=== PATIENT | female | born 1935 | race Caucasian/White ===

== ENCOUNTER 2019-07-23 12:06 | Day surgery (SDC) | payer MEDICARE, OTHER ==
[~2019-07-23] VITALS: Ht 149.9 cm; Wt 67.1 kg
[~2019-07-23 12:06] MED LIST: AMLO10 PO; AMLO5 PO; ASPI81EC PO; CEFD300 PO; CHOL10002 PO; FERR325 PO; LEVSOD75 PO; LISI20 PO; MULTI VITAMIN1 EACH PO; Prednisone50 MG PO
--- NOTE | 2019-07-23 14:36 | NUR ---
07/23/19 1436 Patricia Levin DURING THE LAST PART OF THE UPPER ENDOSCOPY THE PT WENT BRADYCARDIC IN THE TEENS, SUCKED AIR OUT OF HER DIAPHRAM, WEAK PULSE QUICKLY SPED UP TO 60'S-80'S BECOMING STRONGER HER RATE CONTINUED UP. PT ASYMPTOMATIC UPON AWAKENING, HR 65.
== END 2019-07-23 15:13 | disposition home or self-care (01) ==
LOC: ORSCSDS 12:06
PROVIDERS: Surgery
PROC: 0DB68ZX Excision of Stomach, Via Natural or Artificial Opening Endoscopic, Diagnostic (ICD-10-PCS; principal; 2019-07-23 14:00)
PROC: 0DB48ZX Excision of Esophagogastric Junction, Via Natural or Artificial Opening Endoscopic, Diagnostic (ICD-10-PCS; principal; 2019-07-23 14:00)
DX: K44.9 Diaphragmatic hernia without obstruction or gangrene (principal); R10.13 Epigastric pain; E03.9 Hypothyroidism, unspecified; I10 Essential (primary) hypertension; E78.5 Hyperlipidemia, unspecified; Z79.82 Long term (current) use of aspirin; Z79.899 Other long term (current) drug therapy
CPT/HCPCS: 88305; 88342; J2704; J7120

== ENCOUNTER → 2019-10-14 | Outpatient (CLI) | payer MEDICARE, OTHER ==
[~2019-10-14] MED LIST changes: +HYDR1TAB94 PO; +METO10 PO; +ONDA4ODT MM
[2019-10-14 18:05] LABS: Source, Urine Clean Catch
[2019-10-14 19:13] LABS: Bilirubin, Urine Neg (Neg); Blood, Urine Neg (Neg); Glucose Qualitative, Urine Neg (Neg); Ketones, Urine Neg (Neg); Leukocyte Esterase, Urine 1+ (Neg); Nitrite, Urine Neg (Neg); Protein, Urine Neg (Neg); Specific Gravity, Urine 1.015 (1.003-1.022); Urobilinogen, Urine NORM (Normal)
[2019-10-14 19:23] LABS: Appearance, Urine Clear (Clear); Color, Urine Yellow (P-Yellow)
[2019-10-14 19:24] LABS: Bacteria Few /hpf; Red Blood Cells, Urine 0-2 /hpf (0-2); Squamous Epithelial Cells Few /hpf (Few)
== END | disposition home or self-care (01) ==
LOC: LAB 18:01 → LAB SHORT 18:01
PROVIDERS: Nurse Practitioner Family
DX: I10 Essential (primary) hypertension (principal)
CPT/HCPCS: 81001; 87086

== ENCOUNTER 2020-10-23 14:14 | Emergency (ER) | payer MEDICARE, OTHER ==
[~2020-10-23] VITALS: Ht 149.9 cm; Wt 64.9 kg
[~2020-10-23 14:14] MED LIST changes: -ASPI81EC PO; +AZIT250 PO; +Acetaminophen650 M1 PO; +Aspir 8181 MG PO; -CHOL10002 PO; +DOCU100 PO; +EUTHYROX50 MCG PO; +FERSU300 PO; +HYDCHL25 PO; -LEVSOD75 PO; -LISI20 PO; +METO25 PO; +ONDA4 PO; +VITAMIN D31000 UNI1 PO; +XARELTO20 MG PO; +ZESTRIL40 M1 PO
== END 2020-10-23 14:45 | disposition home or self-care (01) ==
LOC: ER 14:14
DX: U07.1 COVID-19 (principal); I10 Essential (primary) hypertension; E03.9 Hypothyroidism, unspecified; Z88.7 Allergy status to serum and vaccine; Z88.5 Allergy status to narcotic agent; Z79.899 Other long term (current) drug therapy
CPT/HCPCS: 99282

== ENCOUNTER 2020-11-26 09:47 | Inpatient (IN) | payer MEDICARE, OTHER ==
[~2020-11-26] VITALS: Ht 149.9 cm; Wt 61.5 kg
[~2020-11-26 09:47] MED LIST changes: -METO25 PO; +METO25ER PO; +XARELTO15 M1 PO; -XARELTO20 MG PO
[2020-11-26 10:29] LABS: BASOPHILS ABSOLUTE AUTO 0.07 K/mm3 (0.00-0.23); BASOPHILS PERCENT AUTO 1 % (0-2); EOSINOPHILS ABSOLUTE AUTO 0.01 K/mm3 (0.00-0.68); EOSINOPHILS PERCENT AUTO 0 % (0-6); Hematocrit 35.9 % (33.0-51.0); Hemoglobin 11.5 g/dL (11.5-16.0); IMMATURE GRAN ABSOLUTE AUTO 0.55 K/mm3 (0.00-0.10); IMMATURE GRAN PERCENT AUTO 4 % (0-1); LYMPHOCYTES ABSOLUTE AUTO 2.17 K/mm3 (0.84-5.20); LYMPHOCYTES PERCENT AUTO 16 % (21-46); MONOCYTES ABSOLUTE AUTO 1.41 K/mm3 (0.16-1.47); MONOCYTES PERCENT AUTO 10 % (4-13); Mean Corpuscular HGB 27.8 pg (26.0-34.0); Mean Corpuscular Volume 87 fL (80-100); Mean Platelet Volume 10.1 fL (9.1-12.4); NEUTROPHILS ABSOLUTE AUTO 9.37 K/mm3 (1.96-9.15); NEUTROPHILS PERCENT AUTO 69 % (41-73); Platelet Count 697 K/mm3 (150-400); RDW Coefficient Variation 15.9 % (11.7-14.2); Red Blood Cell Count 4.14 M/mm3 (3.80-5.20); White Blood Cell Count 13.58 K/mm3 (4.00-11.30)
[2020-11-26 10:49] LABS: Alanine Aminotransfer (ALT/SGP 98 U/L (12-78); Albumin/Globulin Ratio 0.4 (0.8-1.8); Alk Phos 100 U/L (50-136); Anion Gap 6 mmol/L (6-16); Aspartate Aminotrans (AST/SGOT 53 U/L (12-37); Bilirubin, Total 0.5 mg/dL (0.1-1.0); Blood Urea Nitrogen 21 mg/dL (8-24); Bun/Creatinine Ratio 27.5 (12.0-20.0); CO2, Blood 27 mmol/L (21-32); Calcium, Blood 8.9 mg/dL (8.5-10.1); Chloride, Blood 103 mmol/L (98-108); Creatinine, Blood 0.76 mg/dL (0.40-1.00); Globulin, Blood 4.8 g/dL (2.2-4.0); Glomerular Filtration Rate >60 (60-); Glucose, Blood 98 mg/dL (70-99); Potassium, Blood 3.7 mmol/L (3.5-5.5); Sodium, Blood 136 mmol/L (136-145); Total Protein, Blood 6.8 g/dL (6.4-8.2); Troponin I <0.015 ng/mL (0.000-0.040)
[2020-11-26] MEDS ORDERED: METOPROLOL SUCC25 MG PO (12:20)
[2020-11-26] MEDS ORDERED: HYDCHL25 PO (12:22)
[2020-11-26] MEDS ORDERED: ASCO500 PO (12:54)
--- NOTE | 2020-11-26 17:20 | NUR ---
SUMMARY PT ADMITTED FROM THE ER FOR PLEURAL EFFUSION, DR BOO DID A BEDSIDE THORACENTESIS, PT RONAL WELL, OVER 1 LITER OF FLUID REMOVED AND SENT TO THE LAB, PT ON 2L NC, BASELINE IS ROOM AIR, SON AND PT'S ORE BUYER IS AT THE BEDSIDE, PT REPORTS BREATHING EASIER AFTER PROCEDURE, AWAITING CHEST X RAY, VSS, WILL CONT TO MONITOR
[2020-11-26 17:25] LABS: Automated BF RBC Count 0.005 M/mm3 (0-0); Automated BF WBC Count 1.104 K/mm3 (0-999); Body Fluid WBC Count 1104 /mm3 (0-999); RBC Count, Body Fluid 5000 /mm3 (0-0)
[2020-11-26 17:31] LABS: Lactate Dehydrogenase, Body Fl 128 U/L; Protein, Body Fluid 3.7 g/dL
[2020-11-26 17:32] LABS: Glucose, Body Fluid 86 mg/dL
[2020-11-26 18:14] LABS: Appearance, Body Fluid Hazy (Clear); Color, Body Fluid Yellow (None-Yellow); Total Cell Count, Body Fluid 100
[2020-11-27 04:45] LABS: BASOPHILS ABSOLUTE AUTO 0.06 K/mm3 (0.00-0.23); BASOPHILS PERCENT AUTO 1 % (0-2); EOSINOPHILS PERCENT AUTO 0 % (0-6); Hematocrit 35.3 % (33.0-51.0); Hemoglobin 11.5 g/dL (11.5-16.0); IMMATURE GRAN ABSOLUTE AUTO 0.41 K/mm3 (0.00-0.10); IMMATURE GRAN PERCENT AUTO 3 % (0-1); LYMPHOCYTES ABSOLUTE AUTO 1.51 K/mm3 (0.84-5.20); LYMPHOCYTES PERCENT AUTO 12 % (21-46); MONOCYTES ABSOLUTE AUTO 0.24 K/mm3 (0.16-1.47); MONOCYTES PERCENT AUTO 2 % (4-13); Mean Corpuscular HGB 27.9 pg (26.0-34.0); Mean Corpuscular HGB Conc 32.6 g/dL (31.5-36.5); Mean Corpuscular Volume 86 fL (80-100); Mean Platelet Volume 10.3 fL (9.1-12.4); NEUTROPHILS PERCENT AUTO 83 % (41-73); Platelet Count 620 K/mm3 (150-400); RDW Coefficient Variation 15.9 % (11.7-14.2); RDW Standard Deviation 49.5 fL (35.1-46.3); Red Blood Cell Count 4.12 M/mm3 (3.80-5.20); White Blood Cell Count 13.12 K/mm3 (4.00-11.30)
[2020-11-27 05:04] LABS: Anion Gap 8 mmol/L (6-16); Blood Urea Nitrogen 23 mg/dL (8-24); Bun/Creatinine Ratio 28.6 (12.0-20.0); CO2, Blood 27 mmol/L (21-32); Calcium, Blood 8.5 mg/dL (8.5-10.1); Chloride, Blood 101 mmol/L (98-108); Glomerular Filtration Rate >60 (60-); Glucose, Blood 116 mg/dL (70-99); Magnesium, Blood 2.1 mg/dL (1.6-2.4); Potassium, Blood 3.9 mmol/L (3.5-5.5); Sodium, Blood 136 mmol/L (136-145)
--- NOTE | 2020-11-27 05:15 | NUR ---
SHIFT SUMMARY PT IS AN 85 Y/O FEMALE, ADMITTED FOR PLEURAL EFFUSION. SHE IS A&O X 3, 1PA TO [facility] [place] TELE SHOWED AFIB IN THE 130S THAT CONVERTED TO NSR IN THE 90S @ 2007. PT CURRENTLY ON 2L VIA NC, SATTING > 90%. ALL OTHER VITALS STABLE. PT STATES SHE IS "FEELING MUCH BETTER", THOUGH DOES REPORT SORENESS IN THE AREA OF HER THORACENTESIS. NO OTHER C/O ACUTE PAIN, NAUSEA OR SOB. NO OTHER ACUTE CHANGES IN PT CONDITION NOTED DURING THE NIGHT. WILL CONTINUE TO MONITOR AND TREAT PER EMAR UNTIL HAND OFF TO DAY SHIFT RN.
--- NOTE | 2020-11-27 13:37 | NUR ---
Pt and daughter request handouts with meal ideas. Provided a variety of handouts that share suggestions for planning meals and eating more fruits/vegetables. Pt seemed eager to try the suggestions.
--- NOTE | 2020-11-27 17:04 | NUR ---
SUMMARY PT SITTING UP IN BED WATCHING TV, PT HAS BEEN PLEASANT AND COOPERATIVE T/O THE DAY, PT WAS TAKEN OFF OXYGEN FIRST THING THIS MORNING, PT RONAL WELL, CAREGIVER WAS IN TO SEE THE PT TODAY, PT'S SON WAS ALSO IN TO SEE THE PT, THERAPY WORKED WITH THE PT AND MADE RECOMMENDATIONS FOR HOME WITH HOME HEALTH, PT HAS BEEN UP WITH 1 ASSIST, GAVE PT A FLUTTER VALVE AND AN INCENTIVE SPIROMETER, PT DEMONSTRATED HOW TO USE THEM BOTH, VSS, WILL CONT TO MONITOR
--- NOTE | 2020-11-28 04:54 | NUR ---
SHIFT SUMMARY PT IS A&OX4. ABLE TO MAKE NEEDS KNOWN. PT HAS DIMINISHED LUNG SOUNDS ON THE LEFT LOBE, CLEAR ON THE RIGHT. PT DENIES PAIN. ADLS PROVIDED. SAFETY MEASURES IN PLACE. WILL CONTINUE TO MONITOR.
[2020-11-28] MEDS ORDERED: FURO40 PO (09:24)
--- NOTE | 2020-11-28 16:22 | NUR ---
SHIFT SUMMARY PATIENT DENIES PAIN, NAUSEA, AND SHORTNESS OF BREATH AT REST. PATIENT REPORTS SOME SOB WITH ACTIVITY. PATIENT SBA TO THE BATHROOM. PATIENT EATING AND DRINKING WELL. PATIENT SUSTAINED A HEART RATE OF 160-170, PER DIE CAST TECHNICIAN ANTONELLA THIS AFTERNOON. LOPRESSOR GIVEN PER EMAR. HEART RATE CAME DOWN TO 120-130. IT WOULD OCCASIONALLY JUMP TO 140-150, BUT COME BACK DOWN, PER DIE CAST TECHNICIAN. DR. BOO CALLED. NEW ORDERS PLACED. AT 1600, PATIENT CONVERTED BACK TO SINUS RYTHYM, PER DIE CAST TECHNICIAN. PATIENT DENIED ANY SYMPTOMS. DISCHARGE HELD TILL TOMORROW DUE TO FAMILY SUPPORT BEING OUT OF TOWN. PATIENT IS PLEASANT AND COOPERATIVE WITH CARE.
[2020-11-29 04:52] LABS: BASOPHILS ABSOLUTE AUTO 0.03 K/mm3 (0.00-0.23); BASOPHILS PERCENT AUTO 0 % (0-2); EOSINOPHILS PERCENT AUTO 0 % (0-6); Hematocrit 33.4 % (33.0-51.0); Hemoglobin 10.9 g/dL (11.5-16.0); IMMATURE GRAN PERCENT AUTO 2 % (0-1); LYMPHOCYTES ABSOLUTE AUTO 2.39 K/mm3 (0.84-5.20); LYMPHOCYTES PERCENT AUTO 12 % (21-46); MONOCYTES ABSOLUTE AUTO 1.49 K/mm3 (0.16-1.47); MONOCYTES PERCENT AUTO 8 % (4-13); Mean Corpuscular HGB 27.5 pg (26.0-34.0); Mean Corpuscular HGB Conc 32.6 g/dL (31.5-36.5); Mean Corpuscular Volume 84 fL (80-100); Mean Platelet Volume 10.6 fL (9.1-12.4); NEUTROPHILS ABSOLUTE AUTO 15.34 K/mm3 (1.96-9.15); NEUTROPHILS PERCENT AUTO 78 % (41-73); NRBC ABSOLUTE 0.02 K/mm3 (0.00-0.02); NRBC Auto 0.1 /100 WBC (0.0-0.2); Platelet Count 546 K/mm3 (150-400); RDW Coefficient Variation 15.5 % (11.7-14.2); RDW Standard Deviation 47.7 fL (35.1-46.3); Red Blood Cell Count 3.96 M/mm3 (3.80-5.20); White Blood Cell Count 19.65 K/mm3 (4.00-11.30)
[2020-11-29 05:23] LABS: Bun/Creatinine Ratio 38.2 (12.0-20.0); Calcium, Blood 8.4 mg/dL (8.5-10.1); Creatinine, Blood 1.02 mg/dL (0.40-1.00); Potassium, Blood 3.2 mmol/L (3.5-5.5)
--- NOTE | 2020-11-29 05:23 | NUR ---
SHIFT SUMMARY PT A&OX3. NO ACUTE CHANGES ON THIS SHIFT. RESP EVEN AND UNLABORED. ADLS PROVIDED. SAFETY MEASURES IN PLACE. WILL CONTINUE TO MONITOR.
--- NOTE | 2020-11-29 16:09 | NUR ---
SHIFT SUMMARY PATIENT DENIES PAIN, NAUSEA, AND SHORTNESS OF BREATH. PATIENT ON ROOM AIR AND SATURATING ABOVE 93%. PATIENT IS A SBA WITH FWW TO THE BATHROOM. PATIENT IS EATING AND DRINKING WELL. PATIENT WAS TAKEN TO CHEST XR THIS AFTERNOON. PATIENT DAUGHTER VISITED IN AFTERNOON. PENDING DISCHARGE TOMORROW. PATIENT IS PLEASANT AND COOPERATIVE WITH CARE.
[2020-11-30 04:43] LABS: BASOPHILS ABSOLUTE AUTO 0.06 K/mm3 (0.00-0.23); BASOPHILS PERCENT AUTO 1 % (0-2); EOSINOPHILS PERCENT AUTO 1 % (0-6); Hematocrit 34.3 % (33.0-51.0); IMMATURE GRAN PERCENT AUTO 5 % (0-1); LYMPHOCYTES ABSOLUTE AUTO 2.83 K/mm3 (0.84-5.20); LYMPHOCYTES PERCENT AUTO 25 % (21-46); MONOCYTES ABSOLUTE AUTO 1.46 K/mm3 (0.16-1.47); MONOCYTES PERCENT AUTO 13 % (4-13); Mean Corpuscular HGB 27.4 pg (26.0-34.0); Mean Corpuscular HGB Conc 32.1 g/dL (31.5-36.5); Mean Corpuscular Volume 86 fL (80-100); Mean Platelet Volume 10.4 fL (9.1-12.4); NEUTROPHILS PERCENT AUTO 56 % (41-73); Platelet Count 463 K/mm3 (150-400); RDW Coefficient Variation 15.5 % (11.7-14.2); RDW Standard Deviation 48.2 fL (35.1-46.3); Red Blood Cell Count 4.01 M/mm3 (3.80-5.20); White Blood Cell Count 11.45 K/mm3 (4.00-11.30)
[2020-11-30 05:02] LABS: Bun/Creatinine Ratio 31.1 (12.0-20.0); Calcium, Blood 8.3 mg/dL (8.5-10.1); Creatinine, Blood 1.03 mg/dL (0.40-1.00); Magnesium, Blood 2.2 mg/dL (1.6-2.4); Potassium, Blood 3.3 mmol/L (3.5-5.5)
--- NOTE | 2020-11-30 05:47 | NUR ---
PATIENT IS ALERT AND ORIENTED TO SELF. PATIENT IS PLEASANT AND COOPERATIVE. PATIENT DENIES PAIN OR ANY DISCOMFORT. PATIENT SLEPT MOST OF THE NIGHT NO PATIENT DENIE SOB. NO ACUTE EVENT OR DISTRESS NOTED. WILL CONTINUE TO MONITOR.
--- NOTE | 2020-11-30 12:19 | NUR ---
Per chart review this am with Dr. Horn, pt. likely to discharge today. I have reached out to patient's caregiver Anatoly and requested a call back regarding hospital bed. I will need to know if ordering through [facility] with delivery at roughly 2:30 pm would work for the family. I will also order shower chair. Also contacted patient's son and he is trying to reach Anatoly as well. Requested that they call back soon. All DME will be billed to insurance.
--- NOTE | 2020-11-30 13:37 | NUR ---
Spoke with patients caregiver and confirmed [facility] was appropriate for hospital bed and shower chair order at 12:30 pm today. Orders sent over and confirmed with oncology transplant network manager Carlos that [facility] will deliver prior to 3 pm today. Contacted Rafaela with [facility] per family request. Rafaela will reach out to family to discuss services.Confirmed that family will provide transportation. Per caregiver, pt. has the support she needs at home with the addition of HH. They have my contact number and the number for the clinic if any further needs post discharge. Pt. scheduled for hospital F/U on 12/03/20 at 12pm.
--- NOTE | 2020-11-30 16:26 | NUR ---
discharge summary The patient was A/OX4 to person, place, time and event. The patient was pleasent and cooperative with care. The patient is on RA and is a 1 prsn assist to the bathroom. The patient stated that she feels better than when she was admited and can breath easer. She has been using the insentive spirometer and acapella device. The patients daughter was in the room with her and she was given discharge instructions verbally and written. Her medications were faxed to her pharm. The patient and the daughter stated that understood the discharge instructions and denied having any questions.
== END 2020-11-30 14:21 | disposition home health service (06) | DRG 186 ==
LOC: ER 09:47 → MEDS 13:12 → ENPENDDIS 11-30 12:45 → MEDS 11-30 14:21
PROVIDERS: Physician Assistant; ADMIT Internal Medicine
PROC: 0W9B3ZZ Drainage of Left Pleural Cavity, Percutaneous Approach (ICD-10-PCS; principal; 2020-11-28)
DX: J90 Pleural effusion, not elsewhere classified (principal); J96.01 Acute respiratory failure with hypoxia; I13.0 Hypertensive heart and chronic kidney disease with heart failure and stage 1 through stage 4 chronic kidney disease, or unspecified chronic kidney disease; I50.30 Unspecified diastolic (congestive) heart failure; U09.9 Post COVID-19 condition, unspecified; D72.829 Elevated white blood cell count, unspecified; N18.30 Chronic kidney disease, stage 3 unspecified; I48.91 Unspecified atrial fibrillation; E03.9 Hypothyroidism, unspecified; Z88.7 Allergy status to serum and vaccine; Z88.5 Allergy status to narcotic agent; Z79.01 Long term (current) use of anticoagulants; Z79.899 Other long term (current) drug therapy; Z98.51 Tubal ligation status; Z90.49 Acquired absence of other specified parts of digestive tract; Z90.710 Acquired absence of both cervix and uterus; Z90.89 Acquired absence of other organs; Z98.890 Other specified postprocedural states; Z87.891 Personal history of nicotine dependence
CPT/HCPCS: 36415; 71045; 71046; 76604; 80048; 80053; 82945; 83615; 83735; 83880; 84145; 84157; 84484; 85025; 87070; 87205; 88108; 88305; 89051; 93005; 93010; 93308; 93321; 94667; 97110; 97161; 97530; 99285-25; A9270; J1650; J1940; J2920

== ENCOUNTER 2021-06-17 10:40 | Day surgery (SDC) | payer MEDICARE, OTHER ==
[~2021-06-17] VITALS: Ht 149.9 cm; Wt 64.9 kg
[~2021-06-17 10:40] MED LIST changes: +ASCO500 PO; +FURO40 PO; +METOPROLOL SUCC25 MG PO
[2021-06-17] MEDS ORDERED: FLUTICASONE-SA1 EAC1 INH (10:51)
[2021-06-17] MEDS ORDERED: POTA10T PO (10:51)
[2021-06-17] MEDS ORDERED: TORSE20 PO (10:51)
--- NOTE | 2021-06-17 10:59 | NUR ---
06/17/21 1059 Asha Barragan CALL LIGHT WITHIN REACH. TETRACAINE AT 1053 AND PLEDGETT AT 1054 IN LEFT EYE
== END 2021-06-17 12:18 | disposition home or self-care (01) ==
LOC: ORSCSDS 10:40
PROVIDERS: Ophthalmology
PROC: 08RK3JZ Replacement of Left Lens with Synthetic Substitute, Percutaneous Approach (ICD-10-PCS; principal; 2021-06-17 12:00)
DX: H25.13 Age-related nuclear cataract, bilateral (principal); I48.91 Unspecified atrial fibrillation; I10 Essential (primary) hypertension; E03.9 Hypothyroidism, unspecified; Z79.01 Long term (current) use of anticoagulants; Z79.899 Other long term (current) drug therapy
CPT/HCPCS: J2001; J2250; J3010; J3301; J7040; V2632

== ENCOUNTER 2021-07-13 09:32 | Day surgery (SDC) | payer MEDICARE, OTHER ==
[~2021-07-13] VITALS: Ht 149.9 cm; Wt 65.0 kg
[~2021-07-13 09:32] MED LIST changes: +FLUTICASONE-SA1 EAC1 INH; +POTA10T PO; +TORSE20 PO
== END 2021-07-13 12:20 | disposition home or self-care (01) ==
LOC: ORSCSDS 09:32
PROVIDERS: Ophthalmology
PROC: 08RJ3JZ Replacement of Right Lens with Synthetic Substitute, Percutaneous Approach (ICD-10-PCS; principal; 2021-07-13 11:00)
DX: H25.11 Age-related nuclear cataract, right eye (principal); I10 Essential (primary) hypertension; I48.91 Unspecified atrial fibrillation; Z79.01 Long term (current) use of anticoagulants; Z79.899 Other long term (current) drug therapy
CPT/HCPCS: J2001; J2250; J3010; J3301; J7040; V2632

== ENCOUNTER → 2022-03-08 | Outpatient (CLI) | payer MEDICARE, OTHER | LOC: PLD 13:51 → LAB 13:51 → LAB SHORT 13:51 | DX: C44.1121 Basal cell carcinoma of skin of right upper eyelid, including canthus (principal) | CPT/HCPCS: 88305 ==

== ENCOUNTER 2022-10-05 03:09 | Emergency (ER) | payer MEDICARE, OTHER ==
[~2022-10-05] VITALS: Ht 149.9 cm; Wt 68.0 kg
[2022-10-05 04:00] VITALS: BP 150/80
== END 2022-10-05 05:02 | disposition home or self-care (01) ==
LOC: ER 03:09
DX: H59.311 Postprocedural hemorrhage of right eye and adnexa following an ophthalmic procedure (principal); S00.11XA Contusion of right eyelid and periocular area, initial encounter; I12.9 Hypertensive chronic kidney disease with stage 1 through stage 4 chronic kidney disease, or unspecified chronic kidney disease; N18.30 Chronic kidney disease, stage 3 unspecified; E03.9 Hypothyroidism, unspecified; I48.91 Unspecified atrial fibrillation; Z79.01 Long term (current) use of anticoagulants; Z79.899 Other long term (current) drug therapy; Z87.891 Personal history of nicotine dependence; X58.XXXA Exposure to other specified factors, initial encounter
CPT/HCPCS: 99283

== ENCOUNTER 2024-04-03 12:44 | Emergency (ER) | payer MEDICARE, OTHER ==
[~2024-04-03] VITALS: Ht 144.8 cm; Wt 67.6 kg
[2024-04-03] MEDS ORDERED: METO25ER PO (13:22)
[2024-04-03] MEDS ORDERED: SYNTHROID50 MC1 PO (13:23)
[2024-04-03 13:35] LABS: BASOPHILS ABSOLUTE AUTO 0.09 K/mm3 (0.00-0.23); BASOPHILS PERCENT AUTO 1 % (0-2); EOSINOPHILS PERCENT AUTO 2 % (0-6); Hematocrit 38.8 % (33.0-51.0); Hemoglobin 12.9 g/dL (11.5-16.0); IMMATURE GRAN ABSOLUTE AUTO 0.03 K/mm3 (0.00-0.10); IMMATURE GRAN PERCENT AUTO 0 % (0-1); LYMPHOCYTES PERCENT AUTO 33 % (21-46); MONOCYTES ABSOLUTE AUTO 0.92 K/mm3 (0.16-1.47); MONOCYTES PERCENT AUTO 11 % (4-13); Mean Corpuscular HGB Conc 33.2 g/dL (31.5-36.5); Mean Corpuscular Volume 87 fL (80-100); NEUTROPHILS ABSOLUTE AUTO 4.49 K/mm3 (1.96-9.15); NEUTROPHILS PERCENT AUTO 53 % (41-73); Platelet Count 227 K/mm3 (150-400); RDW Coefficient Variation 13.4 % (11.7-14.2); RDW Standard Deviation 42.9 fL (35.1-46.3); Red Blood Cell Count 4.45 M/mm3 (3.80-5.20); White Blood Cell Count 8.53 K/mm3 (4.00-11.30)
[2024-04-03 13:57] LABS: Albumin, Blood 3.5 g/dL (3.4-5.0); Albumin/Globulin Ratio 0.9 (0.8-1.8); Bilirubin, Total 0.5 mg/dL (0.1-1.0); Bun/Creatinine Ratio 22.9 (12.0-20.0); Calcium, Blood 9.2 mg/dL (8.5-10.1); Creatinine, Blood 1.05 mg/dL (0.40-1.00); Globulin, Blood 3.8 g/dL (2.2-4.0); Potassium, Blood 3.7 mmol/L (3.5-5.5); Total Protein, Blood 7.3 g/dL (6.4-8.2)
[2024-04-03] MEDS ORDERED: Fluorescein Sod 1MG Opth Strips LEFTEYE ONE (14:35)
[2024-04-03 15:00] VITALS: BP 152/81
== END 2024-04-03 15:37 | disposition home or self-care (01) ==
LOC: ER 12:44
PROVIDERS: Student in an Organized Health Care Education/Training Program
DX: S00.03XA Contusion of scalp, initial encounter (principal); I10 Essential (primary) hypertension; E78.5 Hyperlipidemia, unspecified; I48.91 Unspecified atrial fibrillation; Z87.891 Personal history of nicotine dependence; W18.30XA Fall on same level, unspecified, initial encounter
CPT/HCPCS: 70450; 72125; 80053; 85025; 93005; 93010; 99284-25; A9270

== ENCOUNTER 2024-06-23 10:34 | Emergency (ER) | payer MEDICARE, OTHER ==
[~2024-06-23] VITALS: Ht 149.9 cm; Wt 68.0 kg
[~2024-06-23 10:34] MED LIST changes: +SYNTHROID50 MC1 PO
[2024-06-23 11:19] LABS: CORONAVIRUS COVID-19 AG Negative (NEGATIVE); INFLUENZA A AG Negative (NEGATIVE); INFLUENZA B AG Negative (NEGATIVE)
[2024-06-23] MEDS ORDERED: ONDA4ODT MM (14:59)
[2024-06-23] MEDS ORDERED: RX Prepack 2 Tabs Ondansetron ODT 4MG UD ONE (15:00)
[2024-06-23] MEDS ORDERED: Ondansetron HCl 2 MG / ML 2ML Vial IV ONE (15:00)
[2024-06-23 15:20] VITALS: BP 124/101
== END 2024-06-23 15:29 | disposition home or self-care (01) ==
LOC: ER 10:34
PROVIDERS: Student in an Organized Health Care Education/Training Program
DX: J06.9 Acute upper respiratory infection, unspecified (principal); E03.9 Hypothyroidism, unspecified; I48.91 Unspecified atrial fibrillation; I12.9 Hypertensive chronic kidney disease with stage 1 through stage 4 chronic kidney disease, or unspecified chronic kidney disease; N18.30 Chronic kidney disease, stage 3 unspecified; Z87.891 Personal history of nicotine dependence; Z79.890 Hormone replacement therapy; Z79.01 Long term (current) use of anticoagulants; Z79.899 Other long term (current) drug therapy
CPT/HCPCS: 71046; 87428-QW; 99283-25; A9270

== ENCOUNTER → 2024-08-29 | Outpatient (CLI) | payer MEDICARE, OTHER ==
[2024-08-29 13:01] LABS: BASOPHILS ABSOLUTE AUTO 0.05 K/mm3 (0.00-0.23); BASOPHILS PERCENT AUTO 1 % (0-2); EOSINOPHILS ABSOLUTE AUTO 0.09 K/mm3 (0.00-0.68); EOSINOPHILS PERCENT AUTO 1 % (0-6); Hematocrit 41.8 % (33.0-51.0); Hemoglobin 14.1 g/dL (11.5-16.0); IMMATURE GRAN ABSOLUTE AUTO 0.04 K/mm3 (0.00-0.10); IMMATURE GRAN PERCENT AUTO 0 % (0-1); LYMPHOCYTES ABSOLUTE AUTO 2.50 K/mm3 (0.84-5.20); LYMPHOCYTES PERCENT AUTO 23 % (21-46); MONOCYTES ABSOLUTE AUTO 1.47 K/mm3 (0.16-1.47); MONOCYTES PERCENT AUTO 14 % (4-13); Mean Corpuscular HGB Conc 33.7 g/dL (31.5-36.5); Mean Corpuscular Volume 86 fL (80-100); NEUTROPHILS ABSOLUTE AUTO 6.65 K/mm3 (1.96-9.15); NEUTROPHILS PERCENT AUTO 62 % (41-73); NRBC ABSOLUTE 0.00 K/mm3 (0.00-0.02); NRBC Auto 0.0 /100 WBC (0.0-0.2); Platelet Count 252 K/mm3 (150-400); RDW Coefficient Variation 14.1 % (11.7-14.2); RDW Standard Deviation 43.7 fL (35.1-46.3)
[2024-08-29 13:18] LABS: Alanine Aminotransfer (ALT/SGP 22.0 U/L (12-78); Albumin, Blood 3.1 g/dL (3.4-5.0); Albumin/Globulin Ratio 0.8 (0.8-1.8); Anion Gap 15.0 mmol/L (3-11); Aspartate Aminotrans (AST/SGOT 26.0 U/L (12-37); Bilirubin, Total 0.7 mg/dL (0.1-1.0); Blood Urea Nitrogen 19.0 mg/dL (8-24); CO2, Blood 25.0 mmol/L (21-32); Calcium, Blood 9.4 mg/dL (8.5-10.1); Chloride, Blood 98.0 mmol/L (98-108); Creatinine, Blood 1.23 mg/dL (0.40-1.00); Globulin, Blood 4.0 g/dL (2.2-4.0); Glucose, Blood 91.0 mg/dL (70-99); Potassium, Blood 3.8 mmol/L (3.5-5.5); Sodium, Blood 134.0 mmol/L (136-145); Total Protein, Blood 7.1 g/dL (6.4-8.2)
== END ==
LOC: LAB 12:56 → LAB SHORT 12:56
PROVIDERS: Physician Assistant
DX: R05.9 Cough, unspecified (principal)
CPT/HCPCS: 80053; 85025

== ENCOUNTER 2024-09-06 14:41 | Emergency (ER) | payer MEDICARE, OTHER ==
[~2024-09-06] VITALS: Ht 157.5 cm; Wt 74.8 kg
[2024-09-06 15:32] LABS: BASOPHILS ABSOLUTE AUTO 0.04 K/mm3 (0.00-0.23); BASOPHILS PERCENT AUTO 1 % (0-2); EOSINOPHILS ABSOLUTE AUTO 0.12 K/mm3 (0.00-0.68); EOSINOPHILS PERCENT AUTO 1 % (0-6); Hematocrit 39.6 % (33.0-51.0); Hemoglobin 13.3 g/dL (11.5-16.0); IMMATURE GRAN ABSOLUTE AUTO 0.03 K/mm3 (0.00-0.10); IMMATURE GRAN PERCENT AUTO 0 % (0-1); LYMPHOCYTES ABSOLUTE AUTO 2.12 K/mm3 (0.84-5.20); LYMPHOCYTES PERCENT AUTO 24 % (21-46); MONOCYTES ABSOLUTE AUTO 1.02 K/mm3 (0.16-1.47); MONOCYTES PERCENT AUTO 12 % (4-13); Mean Corpuscular HGB Conc 33.6 g/dL (31.5-36.5); Mean Corpuscular Volume 86 fL (80-100); NEUTROPHILS ABSOLUTE AUTO 5.47 K/mm3 (1.96-9.15); NEUTROPHILS PERCENT AUTO 62 % (41-73); NRBC ABSOLUTE 0.00 K/mm3 (0.00-0.02); NRBC Auto 0.0 /100 WBC (0.0-0.2); Platelet Count 276 K/mm3 (150-400); RDW Coefficient Variation 14.2 % (11.7-14.2); RDW Standard Deviation 43.8 fL (35.1-46.3)
[2024-09-06 15:51] LABS: Alanine Aminotransfer (ALT/SGP 17.0 U/L (12-78); Albumin, Blood 3.1 g/dL (3.4-5.0); Albumin/Globulin Ratio 0.8 (0.8-1.8); Anion Gap 8.0 mmol/L (3-11); Aspartate Aminotrans (AST/SGOT 24.0 U/L (12-37); Bilirubin, Total 0.7 mg/dL (0.1-1.0); Blood Urea Nitrogen 22.0 mg/dL (8-24); CO2, Blood 29.0 mmol/L (21-32); Calcium, Blood 9.3 mg/dL (8.5-10.1); Chloride, Blood 99.0 mmol/L (98-108); Creatinine, Blood 1.12 mg/dL (0.40-1.00); Globulin, Blood 3.8 g/dL (2.2-4.0); Glucose, Blood 127.0 mg/dL (70-99); Potassium, Blood 3.7 mmol/L (3.5-5.5); Sodium, Blood 132.0 mmol/L (136-145); Total Protein, Blood 6.9 g/dL (6.4-8.2)
[2024-09-06] MEDS ORDERED: NS 1,000 ML IV SCH (17:30)
[2024-09-06] MEDS ORDERED: Ondansetron HCl 2 MG / ML 2ML Vial IV ONE (18:00)
[2024-09-06] MEDS ORDERED: Doxycycline Mo100 M1 PO (18:42)
[2024-09-06] MEDS ORDERED: ONDA4ODT MM (18:42)
[2024-09-06 19:55] VITALS: BP 134/82
[2024-09-06] MEDS ORDERED: RX Prepack 2 Tabs Ondansetron ODT 4MG UD ONE (20:35)
== END 2024-09-06 21:02 | disposition home or self-care (01) ==
LOC: ER 14:41
PROVIDERS: Student in an Organized Health Care Education/Training Program
DX: R55 Syncope and collapse (principal); J18.9 Pneumonia, unspecified organism; R94.02 Abnormal brain scan; Z79.899 Other long term (current) drug therapy; Z79.01 Long term (current) use of anticoagulants; I48.91 Unspecified atrial fibrillation; I12.9 Hypertensive chronic kidney disease with stage 1 through stage 4 chronic kidney disease, or unspecified chronic kidney disease; N18.30 Chronic kidney disease, stage 3 unspecified; Z90.89 Acquired absence of other organs; Z90.710 Acquired absence of both cervix and uterus; Z90.49 Acquired absence of other specified parts of digestive tract; Z87.891 Personal history of nicotine dependence
CPT/HCPCS: 70450; 71046; 80053; 83690; 83880; 84484; 85025; 93005; 93010; 96361; 96374; 99285-25; A9270; J2405; J7030

== ENCOUNTER 2024-09-26 09:44 | Emergency (ER) | payer MEDICARE, OTHER ==
[~2024-09-26] VITALS: Ht 149.9 cm; Wt 59.0 kg
[~2024-09-26 09:44] MED LIST changes: +Doxycycline Mo100 M1 PO
[2024-09-26 10:06] VITALS: BP 148/76
[2024-09-26 10:24] LABS: BASOPHILS ABSOLUTE AUTO 0.06 K/mm3 (0.00-0.23); BASOPHILS PERCENT AUTO 1 % (0-2); EOSINOPHILS ABSOLUTE AUTO 0.08 K/mm3 (0.00-0.68); EOSINOPHILS PERCENT AUTO 1 % (0-6); Hematocrit 38.4 % (33.0-51.0); Hemoglobin 13.0 g/dL (11.5-16.0); IMMATURE GRAN ABSOLUTE AUTO 0.04 K/mm3 (0.00-0.10); IMMATURE GRAN PERCENT AUTO 1 % (0-1); LYMPHOCYTES ABSOLUTE AUTO 1.82 K/mm3 (0.84-5.20); LYMPHOCYTES PERCENT AUTO 21 % (21-46); MONOCYTES ABSOLUTE AUTO 0.76 K/mm3 (0.16-1.47); MONOCYTES PERCENT AUTO 9 % (4-13); Mean Corpuscular HGB Conc 33.9 g/dL (31.5-36.5); Mean Corpuscular Volume 87 fL (80-100); NEUTROPHILS ABSOLUTE AUTO 6.12 K/mm3 (1.96-9.15); NEUTROPHILS PERCENT AUTO 69 % (41-73); NRBC ABSOLUTE 0.00 K/mm3 (0.00-0.02); NRBC Auto 0.0 /100 WBC (0.0-0.2); Platelet Count 274 K/mm3 (150-400); RDW Coefficient Variation 14.0 % (11.7-14.2); RDW Standard Deviation 44.4 fL (35.1-46.3)
[2024-09-26 10:52] LABS: Alanine Aminotransfer (ALT/SGP 16.0 U/L (12-78); Albumin, Blood 2.8 g/dL (3.4-5.0); Albumin/Globulin Ratio 0.7 (0.8-1.8); Anion Gap 9.0 mmol/L (3-11); Aspartate Aminotrans (AST/SGOT 20.0 U/L (12-37); Bilirubin, Total 0.8 mg/dL (0.1-1.0); Blood Urea Nitrogen 10.0 mg/dL (8-24); CO2, Blood 28.0 mmol/L (21-32); Calcium, Blood 8.8 mg/dL (8.5-10.1); Chloride, Blood 99.0 mmol/L (98-108); Creatinine, Blood 0.87 mg/dL (0.40-1.00); Globulin, Blood 3.9 g/dL (2.2-4.0); Glucose, Blood 97.0 mg/dL (70-99); Potassium, Blood 3.7 mmol/L (3.5-5.5); Sodium, Blood 132.0 mmol/L (136-145); Total Protein, Blood 6.7 g/dL (6.4-8.2)
[2024-09-26] MEDS ORDERED: HYDR1TAB94 PO (10:52)
--- NOTE | 2024-09-26 12:18 | NUR ---
PT ELECTS ADMISSION TO HOSPICE, SHE DECLINES ANY TREATMENT OPTIONS, STATES SHE IS ONLY INTERESTED IN SYMPTOM MANAGEMENT. REFERRAL SENT TO [facility].
== END 2024-09-26 11:13 | disposition home or self-care (01) ==
LOC: ER 09:44
PROVIDERS: Physician Assistant
DX: C34.90 Malignant neoplasm of unspecified part of unspecified bronchus or lung (principal); Z51.5 Encounter for palliative care; Z79.899 Other long term (current) drug therapy; I12.9 Hypertensive chronic kidney disease with stage 1 through stage 4 chronic kidney disease, or unspecified chronic kidney disease; N18.30 Chronic kidney disease, stage 3 unspecified; I48.91 Unspecified atrial fibrillation; Z87.891 Personal history of nicotine dependence; Z90.710 Acquired absence of both cervix and uterus
CPT/HCPCS: 71046; 80053; 85025; 99283-25